=== PATIENT | female | born 1955 | race Caucasian/White ===

== ENCOUNTER → 2016-12-09 | Outpatient (CLI) | payer OTHER ==
[~2016-12-09] MED LIST: AMOX1TAB43 PO; AMOX500C3 PO; ASPI81TA28 PO; CALC-388 PO; CHOL100027 PO; COEN1CAP28 PO; DOXY25TA7 PO; FSM70 PO; LPR25 PO; MAGN1CAP2 PO; MELATAB2 PO; MULT-428 PO; MULT1TAB22 PO; VALA1TAB PO; ZOLP5TAB6 PO
== END | disposition home or self-care (01) ==
LOC: C.PATHSPEC 14:15
PROVIDERS: ATTEND Dermatology
DX: L81.4 Other melanin hyperpigmentation (principal); D22.5 Melanocytic nevi of trunk; L57.0 Actinic keratosis

== ENCOUNTER → 2017-06-22 | Outpatient (CLI) | payer OTHER ==
[2017-06-22 11:17] LABS: ALT/SGPT 42 U/L (12-78); BLOOD UREA NITROGEN 17 mg/dl (7-18); BUN/CREATININE RATIO 29.9 (10-20); CALCIUM 9.1 mg/dl (8.5-10.1); CARBON DIOXIDE 27 mmol/L (21-32); CHLORIDE 105 mmol/L (98-107); CREATININE 0.57 mg/dl (0.60-1.20); GLUCOSE 91 mg/dl (70-99); POTASSIUM 4.2 mmol/L (3.5-5.1); SODIUM 139 mmol/L (136-145)
[2017-06-22 11:29] LABS: ALB/GLOB RATIO 1.2 (0.9-2); ALKALINE PHOSPHATASE 64 U/L (45-117); AST/SGOT 23 U/L (15-37)
== END | disposition home or self-care (01) ==
LOC: C.LABBC 07:55
PROVIDERS: ATTEND Physician Assistant Medical
DX: I48.0 Paroxysmal atrial fibrillation (principal); M81.0 Age-related osteoporosis without current pathological fracture; Z11.59 Encounter for screening for other viral diseases

== ENCOUNTER → 2017-08-24 | Outpatient (CLI) | payer OTHER ==
--- NOTE | 2017-08-25 16:01 | MAMMOGRAPHY REPORT ---
BILATERAL DIGITAL SCREENING MAMMOGRAM TOMOSYNTHESIS WITH CAD: 08/24/2017 CLINICAL HISTORY: Routine screening. Patient has no complaints. TECHNIQUE: Breast tomosynthesis in addition to standard 2D mammography was performed. Current study was also evaluated with a Computer Aided Detection (CAD) system. COMPARISON: Comparison is made to exams dated: 07/09/2015 mammogram, 01/12/2012 mammogram, 07/10/2010 mammogram - [facility], 11/22/2008, and 10/13/2007. BREAST COMPOSITION: The tissue of both breasts is heterogeneously dense, which may obscure small mas ses. FINDINGS: The parenchymal pattern is unchanged. No developing mass, architectural distortion or clus ter of suspicious microcalcifications is seen in either breast. IMPRESSION: ACR BI-RADS CATEGORY 2: BENIGN There is no mammographic evidence of malignancy. A 1 year screening mammogram is recommended. The pa tient will receive written notification of the results. Approximately 10% of breast cancers are not detected with mammography. A negative mammographic report should not delay biopsy if a clinically suggestive mass is present. Kellen Valenzuela M.D. ay/:08/24/2017 17:46:07 Science Technician: Pastora VELASCO(R)(M), [facility] letter sent: Normal 1/2 BI-RADS Code: ACR BI-RADS Category 2: Benign
== END | disposition home or self-care (01) ==
LOC: C.MAMM 14:28
PROVIDERS: ATTEND Physician Assistant
DX: Z12.31 Encounter for screening mammogram for malignant neoplasm of breast (principal)

== ENCOUNTER 2024-06-07 12:13 | Inpatient (IN) ==
[2024-06-07] MEDS: ACETAMINOPHEN 325 MG TAB PO STA (12:37)
[2024-06-07] MEDS: SODIUM CHLORIDE 0.9% 1,000 ML IV ONE (12:54)
[2024-06-07] MEDS: ACETAMINOPHEN 500 MG TAB PO STA (12:55)
[2024-06-07 13:06] LABS: Basophils # (auto) 0.05 K/uL (0.00-0.20); Basophils % (auto) 0.3 %; Eosinophils # (auto) 0.02 K/uL (0.00-0.50); Eosinophils % (auto) 0.1 %; Hematocrit (blood only) 40.1 % (37.0-47.0); Hemoglobin 13.7 g/dl (12.0-16.0); Immature Granulocytes # (auto) 0.07 K/uL (0.01-0.20); Immature Granulocytes % (auto) 0.5 %; Lymphocytes # (auto) 0.66 K/uL (1.20-3.40); Lymphocytes % (auto) 4.5 %; Mean Corpuscular Hemoglobin 31.8 pg (25.0-34.0); Mean Corpuscular Hgb Conc 34.2 g/dL (32.0-36.0); Mean Platelet Volume 9.7 fL (9.4-12.4); Monocytes # (auto) 0.94 K/uL (0.11-0.59); Monocytes % (auto) 6.5 %; Neutrophils # (auto) 12.81 K/uL (1.40-6.50); Neutrophils % (auto) 88.1 %; Platelet Count 384 K/uL (130-400); RDW Coefficient of Variation 11.9 % (11.5-14.5); RDW Standard Deviation 40.8 fL (36.4-46.3); Red Blood Count 4.31 M/uL (4.20-5.40); White Blood Count 14.55 K/ul (4.8-10.8)
--- NOTE | 2024-06-07 13:08 | Emergency Department Note ---
Impression & Plan RLL pneumonia, Adrenal insufficiency, Human metapneumovirus pneumonia, Fever, Elevated LFTs ED Provider Note CHIEF COMPLAINT: Shortness of breath, illness HISTORY OF PRESENTING ILLNESS: This 68-year-old female patient presents to the emergency department for evaluation of a cough, shortness of breath, and illness symptoms. The patient states about 2 weeks ago she started with a cough that has gotten progressively worse. She has also had an intermittent headache. She felt slightly better on 06/03/2024, but then symptoms got worse again. She is now having a nonproductive cough with shortness of breath. She has pain in the center of her chest from coughing. The patient was seen at the [facility] and was referred to the ER. She had been given a Duoneb treatment at [facility], but it only gave her mild improvement of her symptoms. No known fevers at home, but has been having sweats and chills. She rates her discomfort as 3/10. She has been taking OTC cough and cold medication without improvement. She is not on any blood thinners. Upon review of the [facility] visit note from today: She was seen on 06/01 and was diagnosed with an upper respiratory viral infection. COVID and influenza testing was negative at that time. She was given an albuterol inhaler which she has been using and is not helping. Using shine seltzer plus and mucinex for cold symptoms. Has adrenal insufficiency so following sick plan with medications and stress dosing. She has a history of stage IV cancer, melanoma, unfortunately at the time of cancer had colitis and received large doses of prednisone which put her into an adrenal insufficiency and now she is on hydrocortisone daily. She has been working with her carry out clerk to reduce this amount. Prior to being sick was on 15 mg in the morning and 2.5 mg in the afternoon, however started stress dosing 1 week ago and now taking 30 mg in the morning and taking 5 mg at night time. She has a history of treated tuberculosis as well when she was in 4th grade. REVIEW OF SYSTEMS: See HPI for pertinent positives and pertinent negatives. ALLERGIES: Sertraline MEDICATIONS: See below PAST MEDICAL HISTORY: See below PHYSICAL EXAM: Vital Signs: Vitals are noted on the nurse's note and reviewed by myself. GENERAL: Non toxic in appearance and in no acute distress. SKIN: Capillary reflex less than 2 seconds. HEAD: Normocephalic, atraumatic. EARS: Bilateral external auditory canals clear without tragus tenderness. Bilateral tympanic membranes pearly bradley without erythema or effusion. No mastoid tenderness bilaterally. EYES: Pupils equal round and reactive to light and accommodation. Conjunctivae without injection, sclerae without icterus. Extraocular movements intact. NOSE: Patent, turbinates inflamed with no discharge. No sinus tenderness. MOUTH: Mucous membranes moist. Airway patent, uvula midline. Pharynx is not erythematous and not edematous without exudate. Pharynx without postnasal drip. No evidence for peritonsillar abscess. NECK: Supple without nuchal rigidity. Mild bilateral anterior cervical lymphadenopathy. HEART: Regular rate and rhythm without murmurs gallops or rubs. LUNGS: Clear to auscultation bilaterally with scattered wheezes and rhonchi throughout with possible Rales. Mild accessory muscle use with a productive cough, but no retractions. ABDOMEN: Positive bowel sounds x 4. Normal tympanic percussion. Soft, nontender, without masses or organomegaly. NEURO: Patient was alert and oriented. DIFFERENTIAL DIAGNOSIS: Differential diagnosis includes viral syndrome, RSV, Influenza, COVID, strep throat, pharyngitis/tonsillitis, mononucleosis, retropharyngeal abscess, peritonsillar abscess, otitis media, otitis externa, sinusitis, bronchitis, pneumonia, as well as other pathologies. ED COURSE AND MEDICAL DECISION MAKING: MEDICATIONS GIVEN: Tylenol 1000 mg p.o. 1 L normal saline solution bolus. DuoNeb treatment. Hydrocortisone 5 mg p.o. Rocephin 2 g IV and Zithromax 500 mg IV. MONITOR: Continuous job coach/job developer: Order was placed for continuous job coach/job developer. Patient was placed on the job coach/job developer and continuous pulse ox. Patient was noted to be in normal sinus rhythm at an initial rate of [] bpm per my interpretation. EKG: EKG was interpreted by myself as normal sinus rhythm at 88 bpm with no acute ST or T wave changes. INTERPRETATION OF LABS: I interpreted the labs with full lab results as below in the lab section of this note. Pertinent lab results discussed in the MDM section below. INTERPRETATION OF IMAGING: Imaging studies were interpreted by myself and read by radiology as per the imaging section of this note. Chest x-ray showed right lower lobe airspace opacity which is likely secondary to pneumonia based on her symptoms and exam. EXTERNAL RECORDS REVIEWED: I reviewed the outpatient [facility] visit note from today as summarized above. CHRONIC MEDICAL/SOCIAL CONDITIONS AFFECTING CARE: Adrenal insufficiency CONSULTATIONS: On-call hospitalist SUZAN SUMMARY: The patient was seen during a time of extreme volume and extreme acuity. Nursing triage protocols were initiated with IV lock, labs, and/or imaging studies conducted by protocol in the triage area. The patient was examined by myself once they were taken back to an exam room. The patient has been sick for the past 10 days with a cough, runny nose, nasal congestion, and shortness of breath. The patient has been seen as an outpatient with negative COVID and influenza testing. The patient felt slightly better on 06/03/2024, but then her symptoms got worse again. Today she had significantly worsening symptoms and was seen at the [facility] as an outpatient. She was given a DuoNeb treatment without improvement of her symptoms. Due to her significant cough and pain in the center of her chest, she was referred to the ER. The patient also has a history of adrenal insufficiency and has been taking her stress dose of hydrocortisone during this illness. The patient was given Tylenol 1000 mg p.o. and 1 L normal saline solution bolus prior to my evaluation. The patient had significant wheezing, rhonchi, and possible rales on exam. She was given a DuoNeb treatment with partial improvement of her symptoms. The patient states that she is due for her dose of hydrocortisone and she was given hydrocortisone 5 mg p.o. White blood cell count elevated 14.55 which may be secondary to an infection, but may also be due to her steroid use. Hemoglobin normal at 13.7. Platelet count normal 384. Sodium slightly low 135 and glucose 152. AST elevated 49, ALT elevated at 64 and alk phos elevated at 108. The patient states that she has been taking a lot of Tylenol as an outpatient. Acetaminophen level less than 3. The patient has no abdominal pain or tenderness to palpation on exam. Lactate and procalcitonin were normal. High-sensitivity troponin normal. Respiratory bio fire positive for human metapneumovirus. Chest x-ray showed right lower lobe airspace opacity which is likely secondary to pneumonia based on her symptoms and exam. I had a meaningful discussion about this patient with Dr. Matthew who agrees with my assessment and the treatment plan. The patient was febrile at 38.2 C upon arrival with a heart rate of 98. Blood cultures were obtained and the patient was given Rocephin 2 g IV and Zithromax 500 mg IV. Due to the patient's adrenal insufficiency, length and degree of symptoms, febrile illness, and trouble managing her symptoms as an outpatient, we feel the patient would benefit from inpatient treatment. I spoke with the on-call hospitalist who agreed to admit the patient for further evaluation and treatment. Please refer to their dictation for further details. The patient's care was transferred in stable condition. DIAGNOSIS: Right lower lobe pneumonia Human metapneumovirus Fever Adrenal insufficiency Elevated LFTs Past Med/Surg History Problem List (Updated 06/07/24 @ 21:19 by Tierney Hale PA-C) Elevated LFTs (Acute) Fever (Acute) Human metapneumovirus pneumonia (Acute) Adrenal insufficiency (Acute) RLL pneumonia (Acute) Transaminitis Human metapneumovirus (hMPV) pneumonia Right lower lobe pneumonia H/O Malignant melanoma Adrenal insufficiency Health care maintenance Angioma (Acute) Anxiety (Acute) Postmenopausal atrophic vaginitis (Acute) Seborrheic keratosis (Acute) Tricuspid regurgitation (Acute) Lumbar degenerative disc disease (Chronic) Dyslipidemia (Chronic) Insomnia (Chronic) Herpes simplex (Chronic) Ebsteins anomaly (Chronic) Paroxysmal atrial fibrillation (Chronic) Osteoporosis (Chronic) Medical History Metastatic melanoma History of basal cell cancer Low iron Fracture of distal fibula Amnesia Lumbar disc herniation with radiculopathy Severe low back pain (01/10/14) Surgical History History of laminectomy History of laparotomy History of appendectomy History of back surgery History of Family History Mother No pertinent family history Father Prostate cancer CHF (congestive heart failure) Skin cancer Grandmother (Paternal) Breast cancer Grandfather (Paternal) Colorectal cancer Grandmother (Maternal) Dementia PPD positive, treated Brother Myocardial infarction Denies family history of Ovarian cancer Social History Smoking Status: Former smoker Tobacco Type: Cigarettes Age Started Using Tobacco: 15; Age Quit Using Tobacco: 40; packs per day: 0.25; Cigarettes Per Day: 4-5; Second Hand Exposure: No; Hx Alcohol Use: Yes Alcohol type: wine Alcohol Intake Frequency Comment: 1-2 glasses of wine daily Hx Substance Use: No Preferred Language: Spanish Communication Ability: Effective Visual Impairment: No Limitations Hearing Ability: Normal 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: No Beliefs That Will Affect Care: None marital status: Current Living Situation: Spouse current occupational status: retired Other Information That Helps Us Care for You: No Feels Safe at Home: Yes Safety Concerns: Feels Safe At This Time Childhood Exposure to Second-Hand Smoke: No Dental Care, Regularly: Yes Physical Activity Frequency: Daily Physical Activity Frequency Comment: walking, gardening Seatbelt Use: always Sunscreen Use: Yes Assistive Devices: Glasses Allergies Allergies Allergy/AdvReac Type Severity Reaction Status Date / Time sertraline AdvReac Sleep Verified 06/07/24 11:27 disturbances Home Meds Home Medications Medication Instructions Recorded Confirmed aspirin 81 mg tablet 81 mg PO DAILY 06/18/19 06/07/24 multivitamin 1 tab PO DAILY 06/18/19 06/07/24 melatonin 10 mg capsule 20 mg PO HS 02/02/20 06/07/24 ascorbic acid-vitamin E-biotin 2 tab PO DAILY 05/01/22 06/07/24 [Hair, Skin, Nails with Biotin] escitalopram oxalate 10 mg tablet 10 mg PO DAILY 02/03/24 06/07/24 (Lexapro) magnesium 650 mg PO DAILY 02/03/24 06/07/24 mecobalamin (vitamin B12) 1 tab PO DAILY 02/03/24 06/07/24 doxylamine succinate 25 mg tablet 25 mg PO HS 02/22/24 06/07/24 hydrocortisone 5 mg tablet 5 mg PO UD 02/22/24 06/07/24 diclofenac sodium 1 % topical gel 2 g topical QID PRN Other 06/07/24 06/07/24 eszopiclone 2 mg tablet (Lunesta) 2 mg PO HS PRN insomnia 06/07/24 06/07/24 Previous Rx's Medication Instructions Recorded ferrous sulfate 325 mg (65 mg 325 mg PO DAILY #30 tabs 02/18/22 iron) tablet valacyclovir 1 gram tablet 2,000 mg (2 x 1 gram) PO .COMPLEX 02/19/23 #4 tabs hydrocortisone sod succinate 100 100 mg IM ONCE PRN adrenal crisis 04/27/23 mg solution for injection #1 ea (Solu-Cortef) lorazepam 0.5 mg tablet 0.5 mg PO DAILY PRN anxiety #30 02/22/24 tabs albuterol sulfate 90 mcg/actuation 2 puff inhalation .Q4-6H PRN 06/01/24 aerosol inhaler shortness of breath or wheezing #8.5 grams Results & Data (ED) Vital Signs Vital Signs - 24 hr 06/07/24 12:17 06/07/24 13:06 06/07/24 13:06 Temperature 38.2 C H Temperature Source Oral Pulse Rate 98 H Pulse Rate [Right Brachial] Pulse Rhythm [Right Brachial] Pulse Strength [Right Brachial] Respiratory Rate 20 Respiratory Effort / Characteristics Non-Labored Spontaneous Non-Labored Spontaneous Nasal Congestion Short of Breath Respiratory Depth Normal Normal Respiratory Pattern Regular Regular Blood Pressure 148/82 H Blood Pressure [Right Arm] Blood Pressure Mean 104 Blood Pressure Mean [Right Arm] Blood Pressure Position [Right Arm] Pulse Oximetry 96 Oxygen Delivery Method Room Air Room Air Room Air Sepsis Recent Fever Within 48 Hours No Sepsis New/Unexplained Change in Mental Status N/A Sepsis Action Taken by Nursing No Action Required 06/07/24 13:06 06/07/24 13:06 06/07/24 13:42 Temperature 37.9 C H Temperature Source Oral Pulse Rate 92 H Pulse Rate [Right Brachial] 84 82 Pulse Rhythm [Right Brachial] Regular Pulse Strength [Right Brachial] Normal Respiratory Rate 22 22 18 Respiratory Effort / Characteristics Non-Labored Spontaneous Nasal Congestion Short of Breath Spontaneous Respiratory Depth Normal Normal Respiratory Pattern Regular Blood Pressure Blood Pressure [Right Arm] 151/76 H 134/73 Blood Pressure Mean Blood Pressure Mean [Right Arm] 101 93 Blood Pressure Position [Right Arm] Lying Pulse Oximetry 94 94 98 Oxygen Delivery Method Room Air Room Air Room Air Sepsis Recent Fever Within 48 Hours Sepsis New/Unexplained Change in Mental Status Sepsis Action Taken by Nursing Laboratory Data 06/07/24 12:48 06/07/24 12:48 Lab Results 06/07/24 06/07/24 Range/Units 12:48 12:50 WBC 14.55 H (4.8-10.8) K/ul RBC 4.31 (4.20-5.40) M/uL Hgb 13.7 (12.0-16.0) g/dl Hct 40.1 (37.0-47.0) % MCV 93.0 (80.0-100.0) fL MCH 31.8 (25.0-34.0) pg MCHC 34.2 (32.0-36.0) g/dL RDW Std Deviation 40.8 (36.4-46.3) fL RDW Coeff of Jamil 11.9 (11.5-14.5) % Plt Count 384 (130-400) K/uL MPV 9.7 (9.4-12.4) fL Immature Gran % (Auto) 0.5 % Neut % (Auto) 88.1 % Lymph % (Auto) 4.5 % [place] % (Auto) 6.5 % Eos % (Auto) 0.1 % Baso % (Auto) 0.3 % Neut # (Auto) 12.81 H (1.40-6.50) K/uL Lymph # (Auto) 0.66 L (1.20-3.40) K/uL [place] # (Auto) 0.94 H (0.11-0.59) K/uL Eos # (Auto) 0.02 (0.00-0.50) K/uL Baso # (Auto) 0.05 (0.00-0.20) K/uL Immature Gran # (Auto) 0.07 (0.01-0.20) K/uL PT Cancelled INR Cancelled APTT Cancelled PTT Ratio Cancelled Sodium 135 L (136-145) mmol/L Potassium 4.5 (3.5-5.1) mmol/L Chloride 102 (98-107) mmol/L Carbon Dioxide 23 (21-32) mmol/L Anion Gap 10 (3-11) BUN 14 (6-23) mg/dl Creatinine 0.61 (0.6-1.2) mg/dl Est Cr Clr Drug Dosing 82.6 ml/min Est GFR ( Amer) 108.0 ml/min Est GFR (Non-Af Amer) 93.1 ml/min BUN/Creatinine Ratio 23.0 H (10-20) Glucose 152 H (70-99(Fasting)) mg/dl Calcium 9.4 (8.6-10.3) mg/dl Total Bilirubin 0.9 (0.2-1.0) mg/dl AST 49 H (13-39) U/L ALT 64 H (7-52) U/L Alkaline Phosphatase 108 H (34-104) U/L Troponin I High Sens 7.8 (0-14) pg/ml Total Protein 7.7 (6.0-8.3) gm/dl Albumin 4.3 (3.4-5.0) gm/dl Globulin 3.4 (2.5-4.0) gm/dl Albumin/Globulin Ratio 1.3 (0.9-2) Acetaminophen < 3 L (10-30) ug/ml Adenovirus (PCR) Not Detected (NotDetected) B. pertussis DNA (PCR) Not Detected (NotDetected) B.parapertussis DNA PCR Not Detected (NotDetected) C. pneumoniae DNA (PCR) Not Detected (NotDetected) Coronavirus OC43 (PCR) Not Detected (NotDetected) Coronavirus HKU1 (PCR) Not Detected (NotDetected) Coronavirus 229E (PCR) Not Detected (NotDetected) SARS-CoV-2 (PCR) Not Detected (NotDetected) Coronavirus NL63 (PCR) Not Detected (NotDetected) Human Metapneumovir PCR DETECTED A (NotDetected) Influenza Type A (PCR) Not Detected (NotDetected) Influenza Type B (PCR) Not Detected (NotDetected) M. pneumoniae (PCR) Not Detected (NotDetected) Parainfluenza 1 (PCR) Not Detected (NotDetected) Parainfluenza 2 (PCR) Not Detected (NotDetected) Parainfluenza 3 (PCR) Not Detected (NotDetected) Parainfluenza 4 (PCR) Not Detected (NotDetected) RSV (PCR) Not Detected (NotDetected) Entero/Rhino (PCR) Not Detected (NotDetected) Administered Medications Albuterol (Albut/Ipratrop 3mg/0.5mg Neb 3 Ml Vial) 3 ml INH Q6R YASSINE Stop: 07/07/24 18:59 Last Admin: 06/07/24 19:13 Dose: 3 ml Documented By: KYC Acetaminophen (Ofirmev) 1,000 mg in 100 mls @ 400 mls/hr IV Q8H PRN PRN Reason: Pain or Fever Stop: 06/10/24 19:52 Last Infusion: 06/07/24 20:20 Dose: Infused Documented By: Admin: 06/07/24 20:01 Dose: 400 mls/hr Documented By: JAMES Ondansetron HCl (Ondansetron Inj 2 Mg/Ml 2 Ml Vial) 4 mg IV Q6H PRN PRN Reason: Nausea And Vomiting Stop: 07/07/24 19:52 Last Admin: 06/07/24 20:01 Dose: 4 mg Documented By: JAMES Discontinued Medications Acetaminophen (Acetaminophen 325 Mg Tab) 650 mg PO NOW STA Stop: 06/07/24 12:24 Last Admin: 06/07/24 12:37 Dose: Not Given Documented By: JADE Acetaminophen (Acetaminophen 500 Mg Tab) 1,000 mg PO NOW STA Stop: 06/07/24 12:26 Last Admin: 06/07/24 12:55 Dose: 1,000 mg Documented By: ЕЛЕНА Albuterol (Albut/Ipratrop 3mg/0.5mg Neb 3 Ml Vial) 3 ml NEB NOW STA; Protocol Stop: 06/07/24 13:37 Last Admin: 06/07/24 13:43 Dose: 3 ml Documented By: JOVAN Hydrocortisone (Hydrocortisone 10 Mg Tab) 5 mg PO NOW STA Stop: 06/07/24 13:53 Last Admin: 06/07/24 14:58 Dose: 5 mg Documented By: JEAN PAUL Sodium Chloride (Nss) 1,000 mls @ 999 mls/hr IV .Q1H1M ONE Stop: 06/07/24 13:25 Last Infusion: 06/07/24 15:01 Dose: Infused Documented By: JEAN PAUL Admin: 06/07/24 12:54 Dose: 999 mls/hr Documented By: ЕЛЕНА Ceftriaxone Sodium (Rocephin) 2,000 mg in 50 mls @ 100 mls/hr IV NOW STA Stop: 06/07/24 14:15 Last Infusion: 06/07/24 15:31 Dose: Infused Documented By: JEAN PAUL Admin: 06/07/24 15:01 Dose: 100 mls/hr Documented By: JEAN PAUL Azithromycin 500 mg/ Dextrose 255 mls @ 125 mls/hr IV NOW ONE Stop: 06/07/24 15:48 Last Infusion: 06/07/24 17:37 Dose: Infused Documented By: Admin: 06/07/24 15:31 Dose: 125 mls/hr Documented By: BRITTANYM Imaging Data Radiologist's Impression: Chest X-Ray 06/07/24 12:24 XR chest 2V PA/lateral CLINICAL HISTORY: r/o pnx TECHNIQUE: 2 views of the chest were obtained. Comparison: Comparison is made to rib series 04/08/2023 FINDINGS: No lines and tubes are seen. The cardiomediastinal silhouette is normal. Right lower lung airspace opacities are seen. No evidence of pleural effusion or pneumothorax. IMPRESSION: No evidence of pneumothorax. Right lower lobe airspace opacity. This may represent atelectasis, pneumonia, and/or aspiration. ACT 112: Negative or not required by law. Electronically signed by: Jostin Maguire M.D. 06/07/2024 1:36 PM Discharge Plan Visit Data Chief Complaint: Shortness of Breath/Dyspnea Stated Complaint: COLD SYMPTOMS, EXTREME PAIN, SOB ED Provider: Wellington Matthew ED Midlevel Provider: Tierney Hale Discharge Problem: RLL pneumonia, Adrenal insufficiency, Human metapneumovirus pneumonia, Fever, Elevated LFTs Patient Disposition: Admitted As Inpatient Condition: Good Discharge Instructions Interventions: ED Discharge Assessment Last Done: 06/07/24 15:45 Discharge Problem: Fever Qualifiers: Encounter type: initial encounter
[2024-06-07 13:26] LABS: Albumin Globulin Ratio 1.3 (0.9-2); Albumin Level 4.3 gm/dl (3.4-5.0); Bilirubin,Total 0.9 mg/dl (0.2-1.0); Calcium 9.4 mg/dl (8.6-10.3); Creatinine Clr Calc Pharmacy 82.6 ml/min; Est GFR (Non-African American) 93.1 ml/min; Globulin 3.4 gm/dl (2.5-4.0); Potassium 4.5 mmol/L (3.5-5.1); Total Protein 7.7 gm/dl (6.0-8.3)
[2024-06-07 13:31] LABS: Troponin I High Sensitivity 7.8 pg/ml (0-14)
--- NOTE | 2024-06-07 13:37 | XRay Report ---
XR chest 2V PA/lateral CLINICAL HISTORY: r/o pnx TECHNIQUE: 2 views of the chest were obtained. Comparison: Comparison is made to rib series 04/08/2023 FINDINGS: No lines and tubes are seen. The cardiomediastinal silhouette is normal. Right lower lung airspace op acities are seen. No evidence of pleural effusion or pneumothorax. IMPRESSION: No evidence of pneumothorax. Right lower lobe airspace opacity. This may represent atelectasis, pneum onia, and/or aspiration. ACT 112: Negative or not required by law. Electronically signed by: Jostin Maguire M.D. 06/07/2024 1:36 PM
[2024-06-07] MEDS: ALBUT/IPRATROP 3MG/0.5MG NEB 3 ML VIAL NEB STA (13:43)
--- NOTE | 2024-06-07 13:46 | Emergency Department Note ---
ED Visit Note I was consulted by the Advanced Practice Provider. I personally made or approved the management plan for the patient. I performed a substantive portion of the visit. This includes the aspects of: MDM. .
[2024-06-07 14:04] LABS: Adenovirus PCR Not Detected (NotDetected); Bordetella parapertussis PCR Not Detected (NotDetected); Bordetella pertussis PCR Not Detected (NotDetected); Chlamydia pneumoniae PCR Not Detected (NotDetected); Coronavirus 229E PCR Not Detected (NotDetected); Coronavirus CoV-2 (COVID19)PCR Not Detected (NotDetected); Coronavirus HKU1 PCR Not Detected (NotDetected); Coronavirus NL63 PCR Not Detected (NotDetected); Coronavirus OC43PCR Not Detected (NotDetected); Human Metapneumovirus PCR DETECTED (NotDetected); Influenza A PCR Not Detected (NotDetected); Influenza B PCR Not Detected (NotDetected); Mycoplasma pneumoniae PCR Not Detected (NotDetected); Parainfluenza Virus 1 PCR Not Detected (NotDetected); Parainfluenza Virus 2 PCR Not Detected (NotDetected); Parainfluenza Virus 3 PCR Not Detected (NotDetected); Parainfluenza Virus 4 PCR Not Detected (NotDetected); Respiratory Syncytial VirusPCR Not Detected (NotDetected); Rhinovirus/Enterovirus PCR Not Detected (NotDetected)
--- NOTE | 2024-06-07 14:04 | History & Physical Report ---
Date of Service June 07, 2024 Assessment & Plan (1) Human metapneumovirus (hMPV) pneumonia: Plan: Worsening cough and SOB at rest x 10 days Leukocytosis at 14.55 with initial predominance; febrile at 37.9 C on arrival; non-hypoxic Metapneumovirus (+); contact isolation precautions CXR showed RLL airspace opacity which may represent concomitant pneumonia Rocephin + Azithromycin q24h (QTc okay) Guaifenesin 1200 mg p.o. BID DuoNeb 3 mL Q6R Acetaminophen as needed for fever Continuous pulse oximetry and supplemental oxygen as needed A.m. CBC, CMP, mag (2) Adrenal insufficiency: Plan: Patient reports she has been weaning down on hydrocortisone with her mgmt consultant However, this past week she has been taking hydrocortisone 30 mg p.o. in the morning, and 7.5 mg in the afternoon Will double for acute physiologic stress in the setting of febrile illness to 60 mg p.o. in the morning, and 15 mg p.o. in the afternoon A.m. cortisol level (3) H/O Malignant melanoma: Plan: Hx of stage IV malignant melanoma s/p treatment Patient reports she has been cancer free x 4 years (4) Transaminitis: Plan: Mild; no RUQ pain on physical exam Acetaminophen level WNL ? Secondary to viral illness; ? Secondary to history of hepatic mets Trend CMP Plan Disposition: Admit to [facility] Full code Regular diet VTE PPx: Lovenox 40 mg SQ q24h History of Present Illness Chief Complaint: SOB/dyspnea Primary Care Provider: Alessandra Madera MD Velia is a pleasant 68-year-old female with PMH of tuberculosis, stage IV metastatic melanoma (dx in 2019), paroxysmal atrial fibrillation, Ebstein's anomaly, herpes simplex, osteoporosis, and anxiety. She presented on 06/07 for worsening cough, congestion, and SOB at rest and with exertion x 10 days. She first developed her nonproductive cough on Monday 05/28 when driving home from [place]. Since then her symptoms have been getting worse. She endorses SOB both at rest and with exertion. She has not checked her temperature, but believes she has been sweaty at night with chills and fever. No sick contacts. No supplemental oxygen at baseline or CPAP at night. She has been taking Mucinex, Gracie[place] plus cold and flu, and was given an inhaler (but she is unsure if any of these measures are helping). No history of asthma, COPD, or DVT/PE. She does have a history of tuberculosis in fourth grade, for which she received treatment. Patient took her regular morning medications today; no recent change in medications. However, she has been doubling her hydrocortisone to 30 mg in the morning and 5-->7.5 mg in the afternoon. History of adrenal insufficiency due to prednisone use when she had cancer (this was brought on by colitis during her chemotherapy treatment emphasis; she is cancer free x 4 years. Patient is a former tobacco cigarette smoker; quit 29 years ago. She does endorse intermittent alcohol use; bourbon/[employer]; but not since being sick. Patient is mildly febrile at 37.9 C at time admission; SpO2 98% on RA; vitals otherwise stable. ED course: Ceftriaxone 2000 mg IV Azithromycin 500 mg IV Acetaminophen 1650 mg p.o. NSS 1000 mL IV DuoNeb 3 mL Hydrocortisone 5 mg p.o. ROS: Patient endorses fever, chills, night-sweats, generalized weakness, lighth eadedness, CHOU, decreased appetite, SOB both at rest and with exertion, coughing fits (non-productive), or nausea. Patient denies chest pain, pleuritic CP (although it does make her cough), hemoptysis, abdominal pain, vomiting, diarrhea, or changes in urinary/bowel habits. Allergies Allergy/AdvReac Type Severity Reaction Status Date / Time sertraline AdvReac Sleep Verified 06/07/24 11:27 disturbances Home Medications Medication Instructions Recorded Confirmed Type aspirin 81 mg tablet 81 mg PO DAILY 06/18/19 06/07/24 History multivitamin 1 tab PO DAILY 06/18/19 06/07/24 History melatonin 10 mg capsule 20 mg PO HS 02/02/20 06/07/24 History ferrous sulfate 325 mg (65 mg 325 mg PO DAILY #30 tabs 02/18/22 06/07/24 Rx iron) tablet ascorbic acid-vitamin E-biotin 2 tab PO DAILY 05/01/22 06/07/24 History [Hair, Skin, Nails with Biotin] valacyclovir 1 gram tablet 2,000 mg (2 x 1 gram) PO .COMPLEX 02/19/23 06/07/24 Rx #4 tabs hydrocortisone sod succinate 100 100 mg IM ONCE PRN adrenal crisis 04/27/23 06/07/24 Rx mg solution for injection #1 ea (Solu-Cortef) escitalopram oxalate 10 mg tablet 10 mg PO DAILY 02/03/24 06/07/24 History (Lexapro) magnesium 650 mg PO DAILY 02/03/24 06/07/24 History mecobalamin (vitamin B12) 1 tab PO DAILY 02/03/24 06/07/24 History doxylamine succinate 25 mg tablet 25 mg PO HS 02/22/24 06/07/24 History hydrocortisone 5 mg tablet 5 mg PO UD 02/22/24 06/07/24 History lorazepam 0.5 mg tablet 0.5 mg PO DAILY PRN anxiety #30 02/22/24 06/07/24 Rx tabs albuterol sulfate 90 mcg/actuation 2 puff inhalation .Q4-6H PRN 06/01/24 06/07/24 Rx aerosol inhaler shortness of breath or wheezing #8.5 grams diclofenac sodium 1 % topical gel 2 g topical QID PRN Other 06/07/24 06/07/24 History eszopiclone 2 mg tablet (Lunesta) 2 mg PO HS PRN insomnia 06/07/24 06/07/24 History Past Med/Surg History Problem List (Updated 06/07/24 @ 14:49 by Jay Boston PA-C) Transaminitis Human metapneumovirus (hMPV) pneumonia Right lower lobe pneumonia H/O Malignant melanoma Adrenal insufficiency Health care maintenance Angioma (Acute) Anxiety (Acute) Postmenopausal atrophic vaginitis (Acute) Seborrheic keratosis (Acute) Tricuspid regurgitation (Acute) Lumbar degenerative disc disease (Chronic) Dyslipidemia (Chronic) Insomnia (Chronic) Herpes simplex (Chronic) Ebsteins anomaly (Chronic) Paroxysmal atrial fibrillation (Chronic) Osteoporosis (Chronic) Medical History Metastatic melanoma History of basal cell cancer Low iron Fracture of distal fibula Amnesia Lumbar disc herniation with radiculopathy Severe low back pain (01/10/14) Surgical History History of laminectomy History of laparotomy History of appendectomy History of back surgery History of Family History Mother No pertinent family history Father Prostate cancer CHF (congestive heart failure) Skin cancer Grandmother (Paternal) Breast cancer Grandfather (Paternal) Colorectal cancer Grandmother (Maternal) Dementia PPD positive, treated Brother Myocardial infarction Denies family history of Ovarian cancer Social History Smoking Status: Former smoker Tobacco Type: Cigarettes Age Started Using Tobacco: 15; Age Quit Using Tobacco: 40; packs per day: 0.25; Cigarettes Per Day: 4-5; Second Hand Exposure: No; Hx Alcohol Use: Yes Alcohol type: wine Alcohol Intake Frequency Comment: 1-2 gl asses of wine daily Hx Substance Use: No Preferred Language: Spanish Communication Ability: Effective Visual Impairment: No Limitations Hearing Ability: Normal Fast Food Manager Required: No Beliefs That Will Affect Care: None marital status: Current Living Situation: Spouse current occupational status: retired Other Information That Helps Us Care for You: No Feels Safe at Home: Yes Safety Concerns: Feels Safe At This Time Childhood Exposure to Second-Hand Smoke: No Dental Care, Regularly: Yes Physical Activity Frequency: Daily Physical Activity Frequency Comment: walking, gardening Seatbelt Use: always Sunscreen Use: Yes Assistive Devices: Glasses Review of Systems Review of Systems: See HPI above Physical Exam Physical Exam: General: Mild respiratory distress; pleasant affect; non-toxic appearing; cooperative; SpO2 94% on RA HEENT: normocephalic, atraumatic; no scleral icterus; PERRLA; vision and hearing grossly intact Neck: supple; no lymphadenopathy; trachea midline Skin: warm, dry without signs of tenting; no cyanosis; no rashes, bruising, lesions, or erythema noted CV: chest wall NTP; RRR; S1/S2 normal; no murmurs/rubs/gallops; pulses intact and symmetric at radial, DP, and PT Lungs: Mild respiratory distress; conversational dyspnea; coughing fit; symmetrical chest wall expansion; mild bibasilar crackles in the lower lung lira bilaterally (R>L) ABD: Soft, NTP; BS present; no rebound/guarding; no distention MSK: no tics or fasciculations; no edema noted in the LEs b/l, nonerythematous Neuro: A&Ox3; normal mood and affect; fluent speech; no focal deficits; sensation grossly intact in the LEs b/l Results & Data Results & Data Vital Signs (Past 12 Hours) Vital Signs Temp Pulse Pulse Resp BP BP Pulse Ox 06/07/24 13:42 37.9 C H 82 18 134/73 98 06/07/24 13:06 92 H 22 94 06/07/24 13:06 84 22 151/76 H 94 06/07/24 13:06 06/07/24 13:06 06/07/24 12:17 38.2 C H 98 H 20 148/82 H 96 O2 Del Method 06/07/24 13:42 Room Air 06/07/24 13:06 Room Air 06/07/24 13:06 Room Air 06/07/24 13:06 Room Air 06/07/24 13:06 Room Air 06/07/24 12:17 Room Air Laboratory Results Abnormal lab results 06/07/24 Range/Units 12:48 WBC 14.55 H (4.8-10.8) K/ul Neut # (Auto) 12.81 H (1.40-6.50) K/uL Lymph # (Auto) 0.66 L (1.20-3.40) K/uL [place] # (Auto) 0.94 H (0.11-0.59) K/uL Sodium 135 L (136-145) mmol/L BUN/Creatinine Ratio 23.0 H (10-20) Glucose 152 H (70-99(Fasting)) mg/dl AST 49 H (13-39) U/L ALT 64 H (7-52) U/L Alkaline Phosphatase 108 H (34-104) U/L Diagnostic Findings Chest X-Ray 06/07/24 12:24 XR chest 2V PA/lateral CLINICAL HISTORY: r/o pnx TECHNIQUE: 2 views of the chest were obtained. Comparison: Comparison is made to rib series 04/08/2023 FINDINGS: No lines and tubes are seen. The cardiomediastinal silhouette is normal. Right lower lung airspace opacities are seen. No evidence of pleural effusion or pneumothorax. IMPRESSION: No evidence of pneumothorax. Right lower lobe airspace opacity. This may represent atelectasis, pneumonia, and/or aspiration. ACT 112: Negative or not required by law. Electronically signed by: Jostin Maguire M.D. 06/07/2024 1:36 PM ECG Additional Comments: ECG revealed NSR 88 bpm; QTc 416 Code Status & VTE Plan Code Status Full code VTE Prophylaxis Plan VTE Prophylaxis will be ordered: Yes Supervising Physician Co-Signing Physician Notes Patient seen and examined, chart reviewed, case discussed with Jay Boston PA-C and I agree with the assessment and plan as above except as otherwise noted Labs and images reviewed Velia is a 68-year-old female with a past medical history of malignant melanoma, hepatitis, A-fib, anxiety, TB who has had a nonproductive cough for around 7-10 days. She was seen at outpatient [facility] and was suspected to have a viral URI. Unfortunately her symptoms persisted and was referred to the ER for further testing. Patient has a past history of adrenal insufficiency, and is currently taking stress dose steroids without hypotension on admission. She is BioFire positive for human metapneumovirus; chest x-ray is suspicious for superimposed RLL pneumonia, patient has a leukocytosis with a significantly elevated NLR. Due to her underlying multiple comorbidities, adrenal insufficiency, and ill appearance she was recommended for inpatient antibiotics and overnight observation then discharged home on oral antibiotics. +EE wheezing and conversational dyspnea on exam.RRR. She received Rocephin/azithromycin in the ER. Blood cultures were drawn. She was not hypotensive, tachycardic, tachypneic, or hypoxic and was not septic on admission. Agree with management as above. Given new transaminitis without profound hypotension to indicate shock liver/perfusion deficit and history of malignancy will obtain a right upper quadrant ultrasound and trend LFTs. Agree with antibiotics as noted, pulmonary toilet. Troponin is not elevated and EKG on admission is normal sinus rhythm without territorial ST/T wave changes. She does have a prior history of Terrance anomaly, moderate TR, and paroxysmal A-fib. Last echo with preserved EF did follow-up with electrophysiology due to potential protein anomaly related accessory pathway. EP study was not ultimately thought to be necessary, and was recommended to continue aspirin and metoprolol was discontinued. PG Care Time/CCT Total # of Minutes Spent Total Time Spent with Patient: Total time spent is greater than 50% in coordination of care (as documented) at patient's floor/unit and/or counseling patient: C[place] [address] INT INP/OBS CARE 75MIN Patient Type Established History Comprehensive Exam Comprehensive Medical Decision Making High Complexity Diagnoses Human metapneumovirus (hMPV) pneumonia J12.3 Adrenal insufficiency E27.40 H/O Malignant melanoma Z85.820 Transaminitis R74.01
[2024-06-07] MEDS: HYDROCORTISONE 10 MG TAB PO STA (14:58)
[2024-06-07] MEDS: cefTRIAXone SODIUM 2,000 MG/50 ML BAG IV STA (15:01)
[2024-06-07] MEDS: AZITHROMYCIN 500 MG in DEXTROSE 5% 250 ML IV ONE (15:31)
[2024-06-07] MEDS ORDERED: MELATONIN 3 MG TAB PO PRN (17:09)
[2024-06-07] MEDS ORDERED: ESZOPICLONE 1 MG TAB PO PRN (17:29)
[2024-06-07] MEDS: ALBUT/IPRATROP 3MG/0.5MG NEB 3 ML VIAL INH SCH (19:13)
[2024-06-07] MEDS: ACETAMINOPHEN 325 MG TAB PO PRN (19:44)
[2024-06-07] MEDS: ONDANSETRON INJ 2 MG/ML 2 ML VIAL IV PRN (20:01)
[2024-06-07] MEDS: ACETAMINOPHEN 1,000 MG/100 ML VIAL IV PRN (20:01)
[2024-06-07] MEDS: ENOXAPARIN INJ 40 MG/0.4 ML SYR SQ SCH (21:14)
[2024-06-07] MEDS: guaiFENesin 600 MG TABCR PO SCH (21:15)
[2024-06-07] MEDS: LORazepam 0.5 MG TAB PO PRN (21:15)
[2024-06-07] MEDS: MELATONIN 3 MG TAB PO SCH (21:17)
--- NOTE | 2024-06-07 22:28 | Electrocardiogram Report ---
Test Reason : Blood Pressure : */* mmHG Vent. Rate : 88 BPM Atrial Rate : 88 BPM P-R Int : 138 ms QRS Dur : 86 ms QT Int : 344 ms P-R-T Axes : 63 21 41 degrees QTcB Int : 416 ms Normal sinus rhythm Possible Left atrial enlargement Nonspecific ST abnormality Abnormal ECG When compared with ECG of 26-Mar-2023 15:49, Premature ventricular complexes are no longer Present Confirmed by Logan Kenyon ([id number]) on 06/07/2024 10:28:17 PM Referred By: Confirmed By: Logan Kenyon
[2024-06-08] MEDS: ASPIRIN 81 MG ECTAB PO SCH (07:52)
[2024-06-08] MEDS: ESCITALOPRAM OXALATE 10 MG TAB PO SCH (07:52)
[2024-06-08] MEDS: FERROUS SULFATE 325 MG TAB PO SCH (07:52)
[2024-06-08] MEDS: HYDROCORTISONE 10 MG TAB PO SCH ×2 (07:52→16:01)
[2024-06-08 08:37] LABS: Basophils # (auto) 0.05 K/uL (0.00-0.20); Basophils % (auto) 0.4 %; Eosinophils # (auto) 0.05 K/uL (0.00-0.50); Eosinophils % (auto) 0.4 %; Hematocrit (blood only) 34.2 % (37.0-47.0); Hemoglobin 11.6 g/dl (12.0-16.0); Immature Granulocytes # (auto) 0.05 K/uL (0.01-0.20); Immature Granulocytes % (auto) 0.4 %; Lymphocytes # (auto) 1.71 K/uL (1.20-3.40); Lymphocytes % (auto) 14.2 %; Mean Corpuscular Hgb Conc 33.9 g/dL (32.0-36.0); Mean Corpuscular Volume 94.2 fL (80.0-100.0); Mean Platelet Volume 10.3 fL (9.4-12.4); Monocytes # (auto) 1.02 K/uL (0.11-0.59); Monocytes % (auto) 8.4 %; Neutrophils % (auto) 76.2 %; Platelet Count 382 K/uL (130-400); RDW Standard Deviation 41.7 fL (36.4-46.3); Red Blood Count 3.63 M/uL (4.20-5.40); White Blood Count 12.08 K/ul (4.8-10.8)
[2024-06-08] MEDS ORDERED: MAGNESIUM PO SCH (09:00)
[2024-06-08 10:17] LABS: Potassium 3.8 mmol/L (3.5-5.1)
[2024-06-08 10:55] LABS: Albumin Level 3.8 gm/dl (3.4-5.0); Bilirubin,Total 0.9 mg/dl (0.2-1.0); Magnesium 2.3 mg/dl (1.7-2.4)
[2024-06-08 11:01] LABS: Albumin Globulin Ratio 1.3 (0.9-2); BUN Creatinine Ratio 23.2 (10-20); Est GFR (Non-African American) 95.8 ml/min; Globulin 2.9 gm/dl (2.5-4.0); Total Protein 6.7 gm/dl (6.0-8.3)
--- NOTE | 2024-06-08 11:41 | Hospitalist Progress Note ---
Date of Service June 08, 2024 Assessment & Plan (1) Human metapneumovirus (hMPV) pneumonia: Plan: Worsening cough and SOB at rest x 10 days - Leukocytosis at 14.55 febrile at 37.9 C on arrival Metapneumovirus (+); contact isolation precautions CXR showed RLL airspace opacity which may represent concomitant pneumonia - Rocephin + Azithromycin q24h (QTc okay) Guaifenesin 1200 mg p.o. BID DuoNeb 3 mL Q6R weaned down to room air today, however still poor lung sounds. Will continue to monitor inpatient AM CBC and CMP (2) Adrenal insufficiency: Plan: Patient reports she has been weaning down on hydrocortisone with her research physicist (current home dose 15mg AM and 5mg PM) However, this past week she has been taking hydrocortisone 30 mg AM, and 7.5 mg PM Will double for acute physiologic stress in the setting of febrile illness to 60 mg p.o. in the morning, and 15 mg p.o. in the afternoon (3) H/O Malignant melanoma: Plan: Hx of stage IV malignant melanoma s/p treatment Patient reports she has been cancer free x 4 years (4) Transaminitis: Plan: Mild; no RUQ pain on physical exam Acetaminophen level WNL Suspect secondary to viral infecion, LFTs downtrending. continue to trend Plan Disposition: continued inpatient stay VTE PPx: Lovenox 40 mg SQ q24h updated at bedside 06/08 Admission and Anticipated Discharge Date Admission Date: June 07, 2024 Supervising Physician Co-Signing Physician Notes PA Supervision Note: I did not personally see or examine the patient today, but I verified all atkins points of KEITH Sanchez's assessment and plan with the following exceptions/additions: None Subjective Velia was seen lying in bed, present at bedside. She states she is still feeling very rundown. Able to move around the room. Coughing fits are the worse. This has been going on for 12+ days. Good appetite. Review of Systems Review of Systems: All systems reviewed & are unremarkable except as noted in Subjective Physical Exam Physical Exam: General: NAD, VS as above Resp: on 1.5L on arrival 98%, weaned down to room air and maintained 94-96 CV: RRR, no murmur, Abd: normal bowel sounds, non tender, no hepatosplenomegaly Extremities: Moves all extremities, no edema Neuro: A&O x3, Skin: intact, no lesions noted Results & Data Results & Data Vital Signs (Past 12 Hours) Vital Signs Temp Pulse Pulse Resp BP Pulse Ox O2 Del Method 06/08/24 08:32 74 16 95 Nasal Cannula 06/08/24 07:15 98.1 F 70 18 110/71 99 Nasal Cannula 06/08/24 05:32 98.1 F 06/08/24 00:39 90 18 94 Nasal Cannula O2 Flow Rate 06/08/24 08:32 3 06/08/24 07:15 2 06/08/24 05:32 06/08/24 00:39 2 Laboratory Results CBC, chemistry and liver function test reviewed a.m. cortisol reviewed PG Care Time/CCT Total # of Minutes Spent Total Time Spent with Patient: Total time spent is greater than 50% in coordination of care (as documented) at patient's floor/unit and/or counseling patient: Coding Level of Care Code 55345 SUB INP/OBS CARE 3/50MIN Diagnoses Human metapneumovirus (hMPV) pneumonia J12.3 Adrenal insufficiency E27.40 H/O Malignant melanoma Z85.820 Transaminitis R74.01
[2024-06-08] MEDS ORDERED: HYDROCORTISONE 10 MG TAB PO SCH (15:00)
[2024-06-08] MEDS: cefTRIAXone SODIUM 2,000 MG/50 ML BAG IV SCH (16:02)
[2024-06-08] MEDS: AZITHROMYCIN 500 MG in DEXTROSE 5% 250 ML IV SCH (16:02)
[2024-06-09] MEDS: COUGH DROP (SUGAR FREE) LOZ 24 LOZ/1 BOX BUCCAL ONE (00:40)
[2024-06-09 06:09] LABS: Basophils # (auto) 0.06 K/uL (0.00-0.20); Basophils % (auto) 0.5 %; Eosinophils # (auto) 0.05 K/uL (0.00-0.50); Eosinophils % (auto) 0.4 %; Hematocrit (blood only) 34.3 % (37.0-47.0); Hemoglobin 11.5 g/dl (12.0-16.0); Immature Granulocytes # (auto) 0.08 K/uL (0.01-0.20); Immature Granulocytes % (auto) 0.7 %; Lymphocytes # (auto) 2.31 K/uL (1.20-3.40); Lymphocytes % (auto) 20.5 %; Mean Corpuscular Hemoglobin 31.6 pg (25.0-34.0); Mean Corpuscular Hgb Conc 33.5 g/dL (32.0-36.0); Mean Corpuscular Volume 94.2 fL (80.0-100.0); Monocytes # (auto) 0.94 K/uL (0.11-0.59); Monocytes % (auto) 8.3 %; Neutrophils # (auto) 7.84 K/uL (1.40-6.50); Neutrophils % (auto) 69.6 %; Platelet Count 403 K/uL (130-400); RDW Coefficient of Variation 11.9 % (11.5-14.5); RDW Standard Deviation 41.4 fL (36.4-46.3); Red Blood Count 3.64 M/uL (4.20-5.40); White Blood Count 11.28 K/ul (4.8-10.8)
[2024-06-09 06:20] LABS: Albumin Globulin Ratio 1.2 (0.9-2); Albumin Level 3.6 gm/dl (3.4-5.0); BUN Creatinine Ratio 29.1 (10-20); Bilirubin,Total 0.5 mg/dl (0.2-1.0); Creatinine Clr Calc Pharmacy 91.6 ml/min; Est GFR (African American) 111.7 ml/min; Est GFR (Non-African American) 96.4 ml/min; Globulin 2.9 gm/dl (2.5-4.0); Potassium 3.4 mmol/L (3.5-5.1); Total Protein 6.5 gm/dl (6.0-8.3)
--- NOTE | 2024-06-09 08:52 | Ultrasound Report ---
US liver CLINICAL HISTORY: increasing LFTs. History of metastatic melanoma. COMPARISON STUDY: CT of the abdomen and pelvis October 10, 2019. FINDINGS: No hepatic lesions are identified by sonography. There is no biliary ductal dilatation. The common bile duct measures 3 mm in caliber. Bladder is normal. There are no gallstones. Pancreas is u nremarkable by sonography. There is no right hydronephrosis. IMPRESSION: 1. Unremarkable right upper quadrant ultrasound. No hepatic lesions identified by sonography. 2. No gallstones or biliary ductal dilatation. ACT 112: Negative or not required by law. Electronically signed by: Shay Ford M.D. 06/09/2024 8:51 AM
[2024-06-09] MEDS: POTASSIUM CHLORIDE CRTAB 20 MEQ TABCR PO STA (09:06)
--- NOTE | 2024-06-09 11:41 | Hospitalist Progress Note ---
Date of Service June 09, 2024 Assessment & Plan (1) Human metapneumovirus (hMPV) pneumonia: Plan: Worsening cough and SOB at rest x 10 days - Leukocytosis at 14.55 febrile at 37.9 C on arrival Metapneumovirus (+); contact isolation precautions CXR showed RLL airspace opacity which may represent concomitant pneumonia - continue Rocephin + Azithromycin q24h (QTc okay) Guaifenesin 1200 mg p.o. BID DuoNeb 3 mL Q6R Add Pulmicort nebs remained stable on room air (2) Adrenal insufficiency: Plan: Patient reports she has been weaning down on hydrocortisone with her speech writer (current home dose 15mg AM and 5mg PM) However, this past week she has been taking hydrocortisone 30 mg AM, and 7.5 mg PM Will double for acute physiologic stress in the setting of febrile illness to 60 mg p.o. in the morning, and 15 mg p.o. in the afternoon BP stable, will plan to revert back to 30/7.5 dosing for tomorrow (3) H/O Malignant melanoma: Plan: Hx of stage IV malignant melanoma s/p treatment Patient reports she has been cancer free x 4 years (4) Transaminitis: Plan: Mild; no RUQ pain on physical exam Acetaminophen level WNL Slight bump in LFTs, check RUQ for completeness - RUQ: unremarkable, no hepatic lesions or gallstones AM CMP Plan Disposition: continued inpatient stay VTE PPx: Lovenox 40 mg SQ q24h updated at bedside 06/08 Admission and Anticipated Discharge Date Admission Date: June 07, 2024 Supervising Physician Co-Signing Physician Notes I personally examined the patient and verified all atkins points of history and exam, discussed case, and agree with decision making with Jacki SEWELL Coughing, feeling tired. Headache. Vitals noted, in general she is awake and alert fatigued but no distress. right greater than left suboccipitals high tone tender decreased range of motioninhibitory pressureimproved. Breathing unlabored no accessory muscle use good effort. Human metapneumovirus infection, tension headachecontinue supportive care. OMT as above. Transaminitis almost certainly due to a viral illness. Otherwise as above. Hopefully home soon. Subjective patient seen lying in bed. States that she is not feeling very well, feels very tired and rundown. Did not sleep well last night. Has had more coughing fits. Remained stable on room air. Appetite is fair. Has concerns about going home as you may be primary caregiver for her elderly she does not really show any difficulty get good rest. Review of Systems Review of Systems: All systems reviewed & are unremarkable except as noted in Subjective Physical Exam Physical Exam: General: NAD, VS as above Resp: Stable on room air, lungs are coarse in the bases but improved from yesterday. No wheezing. CV: RRR, no murmur, Extremities: Moves all extremities, no edema Neuro: A&O x3, Skin: intact, no lesions noted Results & Data Results & Data Vital Signs (Past 12 Hours) Vital Signs Temp Pulse Resp BP Pulse Ox O2 Del Method 06/09/24 08:05 97.9 F 67 18 145/73 H 96 Room Air 06/09/24 07:03 69 17 97 Room Air 06/09/24 00:38 72 20 95 Room Air Laboratory Results CBC, chemistry, liver function testing reviewed Diagnostic Findings his ultrasound reviewed PG Care Time/CCT Total # of Minutes Spent Total Time Spent with Patient: Total time spent is greater than 50% in coordination of care (as documented) at patient's floor/unit and/or counseling patient: Coding Level of Care Code 15617 SUB INP/OBS CARE 3/50MIN Diagnoses Human metapneumovirus (hMPV) pneumonia J12.3 Adrenal insufficiency E27.40 H/O Malignant melanoma Z85.820 Transaminitis R74.01
[2024-06-09] MEDS: BUDESONIDE 0.5 MG/2 ML VIAL (PULMICORT) NEB SCH (13:42)
[2024-06-09] MEDS: ESZOPICLONE 1 MG TAB PO PRN (22:20)
[2024-06-10 05:52] LABS: Basophils # (auto) 0.04 K/uL (0.00-0.20); Basophils % (auto) 0.4 %; Eosinophils # (auto) 0.04 K/uL (0.00-0.50); Eosinophils % (auto) 0.4 %; Hematocrit (blood only) 34.7 % (37.0-47.0); Hemoglobin 11.6 g/dl (12.0-16.0); Immature Granulocytes % (auto) 0.9 %; Lymphocytes # (auto) 2.12 K/uL (1.20-3.40); Lymphocytes % (auto) 19.4 %; Mean Corpuscular Hemoglobin 31.4 pg (25.0-34.0); Mean Corpuscular Hgb Conc 33.4 g/dL (32.0-36.0); Mean Platelet Volume 9.7 fL (9.4-12.4); Monocytes # (auto) 0.94 K/uL (0.11-0.59); Monocytes % (auto) 8.6 %; Neutrophils # (auto) 7.71 K/uL (1.40-6.50); Neutrophils % (auto) 70.3 %; Platelet Count 433 K/uL (130-400); RDW Coefficient of Variation 12.1 % (11.5-14.5); RDW Standard Deviation 41.7 fL (36.4-46.3); Red Blood Count 3.69 M/uL (4.20-5.40); White Blood Count 10.95 K/ul (4.8-10.8)
[2024-06-10 06:08] LABS: Albumin Globulin Ratio 1.3 (0.9-2); Albumin Level 3.7 gm/dl (3.4-5.0); Bilirubin,Total 0.4 mg/dl (0.2-1.0); Creatinine Clr Calc Pharmacy 100.8 ml/min; Est GFR (African American) 115.3 ml/min; Est GFR (Non-African American) 99.4 ml/min; Globulin 2.9 gm/dl (2.5-4.0); Potassium 3.7 mmol/L (3.5-5.1); Total Protein 6.6 gm/dl (6.0-8.3)
[2024-06-10 08:13] VITALS: BP 144/65; PULSE 83; RESP 16; TEMP 97.7; O2SAT 96
[2024-06-10] MEDS: HYDROCORTISONE 10 MG TAB PO SCH (09:13)
[2024-06-10] MEDS: ACETAMINOPHEN 500 MG TAB PO PRN (09:25)
--- NOTE | 2024-06-10 10:04 | Discharge Summary ---
Discharge Summary Date of Service June 10, 2024 Principal Dx & Hospital Course #1 = Principal Diagnosis (1) Human metapneumovirus (hMPV) pneumonia: Presented with community-acquired pneumonia, most consistent with viral pneumonia, human metapneumovirus positive. Was started on Zithromax and Rocephin for possible secondary bacterial overgrowthhard to disprove. Improving nicely, stable on room air, mostly symptomatic but no longer acutely illsafe/stable for home - finish out a short course of antibiotics for possible secondary bacterial overgrowth (will have had 3 days of azithromycin 500 mg today, will finish out 5 days of cephalosporin with cefdinir - PCP follow-up this coming week (2) Adrenal insufficiency: with stress dosing at home prior to admission, stress dosing escalated further while here, doing well hemodynamicallywill try to quickly get back to her home dosingstress dosing again tomorrow, and possibly Wednesday depending on how she feels (3) H/O Malignant melanoma: Hx of stage IV malignant melanoma s/p treatment Patient reports she has been cancer free x 4 years (4) Transaminitis: mild transaminitis almost certainly due to the viral illness. Right upper quadrant ultrasound done which was extremely reassuring. Safe/stable for home. Repeat liver enzymes in 3-4 weeks to ensure resolution. Plan Safe/stable for home. Outpatient follow-up. Notes For Next Care Provider Medication Changes From Visit No changes to her chronic regimen, finishing out 3 days of Zithromax 500 mg daily, and 5 days of cephalosporin (2 days of ceftriaxone and then 3 days of cefdinir) Admission HPI Per Admitting Provider Velia is a pleasant 68-year-old female with PMH of tuberculosis, stage IV metastatic melanoma (dx in 2019), paroxysmal atrial fibrillation, Ebstein's anomaly, herpes simplex, osteoporosis, and anxiety. She presented on 06/07 for worsening cough, congestion, and SOB at rest and with exertion x 10 days. She first developed her nonproductive cough on Monday 05/28 [address] driving home from [place]. Since then her symptoms have been getting worse. She endorses SOB both at rest and with exertion. She has not checked her temperature, but believes she has been sweaty at night with chills and fever. No sick contacts. No supplemental oxygen at baseline or CPAP at night. She has been taking Mucinex, [place] plus cold and flu, and was given an inhaler (but she is unsure if any of these measures are helping). No history of asthma, COPD, or DVT/PE. She does have a history of tuberculosis in fourth grade, for which she received treatment. Patient took her regular morning medications today; no recent change in medications. However, she has been doubling her hydrocortisone to 30 mg in the morning and 5-->7.5 mg in the afternoon. History of adrenal insufficiency due to prednisone use when she had cancer (this was brought on by colitis during her chemotherapy treatment emphasis; she is cancer free x 4 years. Patient is a former tobacco cigarette smoker; quit 29 years ago. She does endorse intermittent alcohol use; bourbon/[employer]; but not since being sick. Patient is mildly febrile at 37.9 C at time admission; SpO2 98% on RA; vitals otherwise stable. ED course: Ceftriaxone 2000 mg IV Azithromycin 500 mg IV Acetaminophen 1650 mg p.o. NSS 1000 mL IV DuoNeb 3 mL Hydrocortisone 5 mg p.o. ROS: Patient endorses fever, chills, night-sweats, generalized weakness, lightheadedness, CHOU, decreased appetite, SOB both at rest and with exertion, coughing fits (non-productive), or nausea. Patient denies chest pain, pleuritic CP (although it does make her cough), hemoptysis, abdominal pain, vomiting, diarrhea, or changes in urinary/bowel habits. Updated Medication List Medication Instructions Recorded Confirmed Type aspirin 81 mg tablet 81 mg PO DAILY 06/18/19 06/07/24 History multivitamin 1 tab PO DAILY 06/18/19 06/07/24 History melatonin 10 mg capsule 20 mg PO HS 02/02/20 06/07/24 History ferrous sulfate 325 mg (65 mg 325 mg PO DAILY #30 tabs 02/18/22 06/07/24 Rx iron) tablet ascorbic acid-vitamin E-biotin 2 tab PO DAILY 05/01/22 06/07/24 History [Hair, Skin, Nails with Biotin] valacyclovir 1 gram tablet 2,000 mg (2 x 1 gram) PO .COMPLEX 02/19/23 06/07/24 Rx #4 tabs hydrocortisone sod succinate 100 100 mg IM ONCE PRN adrenal crisis 04/27/23 06/07/24 Rx mg solution for injection #1 ea (Solu-Cortef) escitalopram oxalate 10 mg tablet 10 mg PO DAILY 02/03/24 06/07/24 History (Lexapro) magnesium 650 mg PO DAILY 02/03/24 06/07/24 History mecobalamin (vitamin B12) 1 tab PO DAILY 02/03/24 06/07/24 History doxylamine succinate 25 mg tablet 25 mg PO HS 02/22/24 06/07/24 History hydrocortisone 5 mg tablet 5 mg PO UD 02/22/24 06/07/24 History lorazepam 0.5 mg tablet 0.5 mg PO DAILY PRN anxiety #30 02/22/24 06/07/24 Rx tabs albuterol sulfate 90 mcg/actuation 2 puff inhalation .Q4-6H PRN 06/01/24 06/07/24 Rx aerosol inhaler shortness of breath or wheezing #8.5 grams diclofenac sodium 1 % topical gel 2 g topical QID PRN Other 06/07/24 06/07/24 History eszopiclone 2 mg tablet ([place]) 2 mg PO HS PRN insomnia 06/07/24 06/07/24 History cefdinir 300 mg capsule 300 mg PO BID #6 caps 06/10/24 Rx Hospital Stay Data Consultations 06/07/24 13:59 ED Decision to Admit Stat Diagnostic Imagining Performed 06/09/24 07:41 US RUQ [US liver] Urgent Pending Results Patient Have Any Pending Studies at Discharge: No Discharge Instructions Given to Patient (Per Discharging Provider) Pneumonia - with pneumonia appears to been predominantly, if not entirely, viraldue to a particularly nasty respiratory virus called human metapneumovirus - as we discussed, initially there was a little bit of concern of secondary bacterial overgrowth (sometimes when someone has a viral pneumonia, bacteria can overgrowth causing another pneumonia on top of the viral pneumonia)I am not really seeing any clear-cut evidence of this, but it is also hard to "disprove" given that I picked up your care partway through treatment. With that in mind, we will finish out a 5-day course of antibiotics with cefdinir 300 mg twice daily for 3 more days - pneumonias are unfortunately unknowingly slow to get betteras we have been discussing, it would likely take about a month until you feel back to good is new - it is quite likely that for the next few days the cough may be "up and down"this is pretty normal. I would not worry too much if it is that you have significant coughing fits or times with a lot of mucus production with the cough. The main concern would be far more shortness of breath in between coughing fitsif you are between a coughing fit and feeling notably short of breaththen that would certainly warrant immediate evaluation (as we discussed especially if your pulse ox was below 90 persistently). Similarly but less concerning, if you were to have fevers above 101, that would be worth evaluation as well. - Far more than the cough/shortness of breath/fever, the main part that it takes so long to get better after her pneumonia is the fatigue. I do want you to try to get back to your regular activity, but realized that with walking/exertion you may feel more easily short of breath. Try to push as much as feels okay, but definitely do not "push through" especially if you are feeling notably short of breath (huffing/puffing when you are doing something that normally would not cause that to happen). I would expect what you are able to do to improve every few daysand slowly over the next 3-4 weeks is when you will likely be held to get back to regular activities. - Definitely let her know that it would be quite reasonable for him to offer more help for the next month, not just the next day or 2! Stress dosing of steroids - when someone is sick, it is often fairly difficult to know who will need stress dosing versus who will notbecause what we are trying to avoid with the stress dosing is a crashing out low blood pressureso obviously you do not want a wait until that happens and play "catch up". That said, with hindsight, I doubt that you ever needed stress dosing with this particular infection. With that in mind, the goal will be to get you back to your regular dosing fairly quickly. I would take double your regular dose tomorrow, and then depending on how you feel Wednesdayif you still feel fairly bad take a double dose Wednesday, if you feel reasonable, get back to regular dosing as quickly as Wednesday. Elevated liver enzymes - as we discussed, this is extremely common with viral illnesses. Not surprisingly, the ultrasound was extremely reassuring. Dr. Houston will make sure that you have follow-up lab work in 3-4 weeks to follow the numbers back to normal. to do: -cefdinir 300mg twice a day next dose tonight, 6 more doses (3 days) total -follow up with Dr Houston later this week for a recheck/ensure you're improving -labwork in 3-4 weeks (and as we discussed, this will probably have significant overlap with what [facility] has ordered) -double dose your steroids tomorrow; double dose one last time on wednesday only if you're still feeling fairly lousy. otherwise go back to your regular dosing wednesday. Total Time Total Time Spent Total Time Spent (In Minutes): <30
--- NOTE | 2024-06-10 10:04 | Billing Data ---
Date of Service June 10, 2024 Coding Level of Care Code 92127 IN/OBS DISCH 30 MIN/LESS
[2024-06-10] MEDS: AZITHROMYCIN 250 MG TAB PO ONE (11:02)
[2024-06-10] MEDS: CEFDINIR 300 MG CAP PO STA (11:02)
[2024-06-10] MEDS ORDERED: HYDROCORTISONE 10 MG TAB PO SCH (15:00)
== END 2024-06-10 11:45 | disposition home or self-care (01) | DRG 193 ==
LOC: ED 12:13 → SUATTDRO 14:32 → 3E 14:32